=== PATIENT | female | born 1970 | race Caucasian/White ===

== ENCOUNTER 2020-02-28 13:04 | Outpatient (REF) | payer OTHER, SELFPAY ==
[2020-02-28 14:19] LABS: Basophils Percent Auto 0.2 % (0-2); Eosinophils Percent Auto 0.7 % (0-4); Hematocrit 41.2 % (37-47); Hemoglobin 13.5 g/dl (12.0-16.0); Imm Gran Abs Auto 0.01 X10*3/uL (0.00-0.03); Imm Gran Pct Auto 0.2 % (0.0-0.4); Lymphocytes Absolute Auto 0.4 X10*3/uL (1.2-4.9); Lymphocytes Percent Auto 7.7 % (20-40); MANUAL DIFF FLAG SCAN; Mean Corpuscular HGB Conc 32.8 g/dl (31.0-35.0); Mean Corpuscular Hemoglobin 30.8 pg (27.0-33.0); Mean Corpuscular Volume 93.8 fL (80-98); Mean Platelet Volume 11.5 fL (9.4-12.3); Monocytes Absolute Auto 0.6 X10*3/uL (0.1-1.2); Monocytes Percent Auto 10.5 % (2-11); Neutrophils Absolute Auto 4.4 X10*3/uL (2.0-8.3); Neutrophils Percent Auto 80.7 % (45-73); Platelet Count 220 X10*3/uL (160-400); Red Blood Count 4.39 X10*6/uL (4.20-5.50); Red Cell Distribution Width 12.4 % (11.0-16.0); SCAN SMEAR FLAG 1; White Blood Count 5.4 X10*3/uL (4.8-10.8)
[2020-02-28 14:42] LABS: Alanine Aminotransferase 9 U/L (0-31); Albumin Level 4.7 g/dL (3.5-5.0); Alkaline Phosphatase 52 U/L (39-117); Anion Gap 13 (12-20); Aspartate Amino Transferase 14 U/L (5-31); Bilirubin Direct 0.2 mg/dL (0.0-0.5); Bilirubin Total 0.8 mg/dL (0.0-1.0); Blood Urea Nitrogen 14 mg/dL (9-16); Calcium 8.9 mg/dL (8.4-10.2); Carbon Dioxide 27 mmol/L (22-29); Chloride 105 mmol/L (96-108); Estimated Glomerular Filt Rate > 60; Glucose Random 94 mg/dL (60-115); Potassium 4.1 mmol/l (3.3-5.1); Sodium 141 mmol/L (135-145)
[2020-02-28 14:50] LABS: SLIDE REVIEW VERIFIED
== END 2020-02-28 13:05 | disposition home or self-care (01) ==
LOC: HO.LAB 13:04
PROVIDERS: PCP Nurse Practitioner Adult Health; Visit Provider Psychiatry & Neurology Neurology
DX: G35 Multiple sclerosis (principal)
CPT/HCPCS: 36415; 80048; 80076; 85025

== ENCOUNTER 2020-04-09 11:56 | Outpatient (REF) | payer OTHER, SELFPAY ==
[2020-04-09 13:39] LABS: COVID-19 Test Negative (Negative)
== END 2020-04-09 11:57 | disposition home or self-care (01) ==
LOC: HO.EMPCOV 11:56
PROVIDERS: PCP Nurse Practitioner Adult Health; Visit Provider Internal Medicine
DX: Z20.828 Contact with and (suspected) exposure to other viral communicable diseases (principal)
CPT/HCPCS: 87635; C9803

== ENCOUNTER 2020-04-30 08:48 | Outpatient (REF) | payer OTHER, SELFPAY ==
[2020-04-30 09:04] LABS: COVID-19 Test Positive (Negative)
== END 2020-04-30 08:49 | disposition home or self-care (01) ==
LOC: HO.EMPCOV 08:48
PROVIDERS: Visit Provider Internal Medicine
DX: Z20.828 Contact with and (suspected) exposure to other viral communicable diseases (principal)
CPT/HCPCS: 87635; C9803

== ENCOUNTER 2020-07-16 14:14 | Outpatient (REF) | payer OTHER, SELFPAY ==
[2020-07-16 15:02] LABS: Basophils Percent Auto 0.2 % (0-2); Eosinophils Percent Auto 0.9 % (0-4); Hemoglobin 12.8 g/dl (12.0-16.0); Imm Gran Abs Auto 0.01 X10*3/uL (0.00-0.03); Imm Gran Pct Auto 0.2 % (0.0-0.4); Lymphocytes Absolute Auto 0.4 X10*3/uL (1.2-4.9); Lymphocytes Percent Auto 8.4 % (20-40); MANUAL DIFF FLAG SCAN; Mean Corpuscular HGB Conc 32.8 g/dl (31.0-35.0); Mean Corpuscular Hemoglobin 30.4 pg (27.0-33.0); Mean Corpuscular Volume 92.6 fL (80-98); Monocytes Absolute Auto 0.4 X10*3/uL (0.1-1.2); Monocytes Percent Auto 9.7 % (2-11); Neutrophils Absolute Auto 3.6 X10*3/uL (2.0-8.3); Neutrophils Percent Auto 80.6 % (45-73); Platelet Count 211 X10*3/uL (160-400); Red Blood Count 4.21 X10*6/uL (4.20-5.50); Red Cell Distribution Width 12.8 % (11.0-16.0); SCAN SMEAR FLAG 1; White Blood Count 4.5 X10*3/uL (4.8-10.8)
[2020-07-16 15:19] LABS: SLIDE REVIEW VERIFIED
[2020-07-16 15:28] LABS: Alanine Aminotransferase 14 U/L (0-31); Albumin Level 4.9 g/dL (3.5-5.0); Alkaline Phosphatase 48 U/L (39-117); Aspartate Amino Transferase 19 U/L (5-31); Bilirubin Direct 0.2 mg/dL (0.0-0.5); Bilirubin Total 0.7 mg/dL (0.0-1.0); Total Protein 7.2 g/dL (6.5-8.0)
== END 2020-07-16 14:15 | disposition home or self-care (01) ==
LOC: HO.LAB 14:14
PROVIDERS: PCP Family Medicine; Visit Provider Psychiatry & Neurology Neurology
DX: G35 Multiple sclerosis (principal)
CPT/HCPCS: 36415; 80076; 85025

== ENCOUNTER → 2020-12-25 13:03 | Outpatient (BNVA) | payer SELFPAY | PROVIDERS: PCP Family Medicine ==

== ENCOUNTER 2021-05-10 12:21 | Outpatient (REF) | payer OTHER, SELFPAY ==
--- NOTE | ~2021-05-10 | MM_ITS ---
EXAMINATION: MM SCREENING DIGITAL BREAST TOMOSYNTHESIS, BILATERAL CLINICAL INFORMATION: Screening. Asymptomatic. The lifetime risk of breast cancer based on the Tyrer-Cuzick Model is 15%. COMPARISON: Mammography: 02/09/2019, 05/03/2017, 03/28/2016 TECHNIQUE: Digital breast tomosynthesis is performed in both the craniocaudal and mediolateral oblique views along with computer-aided detection (CAD). Synthesized 2D images are generated from the tomosynthesis. FINDINGS: There are scattered areas of fibroglandular density (ACR BI-RADS breast composition Category b). There are scattered parenchymal asymmetries similar to prior studies. The left breast shows no interval mass or architectural abnormality. Neither breast shows abnormal calcifications. The bilateral axilla and skin contours are unremarkable. The right MLO view has questionable nodular asymmetry upper quadrant 8 cm from nipple without correlate on CC view. This may represent summation artifact or incompletely compressed glandular tissue. Patient will be recalled for additional imaging. MM/MM tomosynthesis screening BI IMPRESSION: 1. Right: Asymmetric density upper quadrant limited to MLO view, possibly summation artifact or incompletely compressed glandular tissue. 2. Left: No mammographic evidence of malignancy. ASSESSMENT: BI-RADS 0: Incomplete - Need Additional Imaging Evaluation RECOMMENDATION: 1. Additional views of the right breast (spot MLO, spot ML). 2. Targeted ultrasound if warranted after review of the additional views. 3. Radiology department staff will contact the patient for additional imaging. This patient's information was entered into a reminder system with a target due date for their next mammogram.
== END 2021-05-10 12:22 | disposition home or self-care (01) ==
LOC: HO.MAMMO 12:21
PROVIDERS: PCP Nurse Practitioner Adult Health; Visit Provider Pediatrics
DX: Z12.31 Encounter for screening mammogram for malignant neoplasm of breast (principal)
CPT/HCPCS: 77063; 77067

== ENCOUNTER 2021-05-28 09:24 | Outpatient (REF) | payer OTHER, SELFPAY ==
--- NOTE | ~2021-05-28 | MM_ITS ---
EXAMINATION: MM DIAGNOSTIC DIGITAL BREAST TOMOSYNTHESIS, RIGHT CLINICAL INFORMATION: Right breast asymmetry upper quadrant. COMPARISON: Mammography: 05/10/2021 and studies dating back to 01/01/2014. TECHNIQUE: Digital breast tomosynthesis is performed. 2D images are generated from the tomosynthesis. The following views are obtained: Spot compression mediolateral oblique, 90 degree mediolateral, and targeted right breast ultrasound. FINDINGS: There are scattered areas of fibroglandular density (ACR BI-RADS breast composition Category b). Additional views demonstrate region of dense breast parenchyma about the superior aspect but without new abnormal dominant mass appreciated. Ultrasound evaluation of the superior aspect of the right breast did not demonstrate any abnormal cystic or solid mass. No region of abnormal distal sound shadowing is appreciated. Results are discussed with the patient at time of visit. MM/MM tomosynthesis added views R IMPRESSION: No specific mammographic or ultrasound findings to suggest malignancy of the right breast. ASSESSMENT: BI-RADS 1: Negative RECOMMENDATION: Routine annual mammography screening. This patient's information was entered into a reminder system with a target due date for their next mammogram.
--- NOTE | ~2021-05-28 | US_ITS ---
EXAMINATION: US DIAGNOSTIC ULTRASOUND BREAST, RIGHT CLINICAL INFORMATION: Superior right breast asymmetry. COMPARISON: May 28, 2021 and studies dating back to January 01, 2014. TECHNIQUE: Ultrasound of the breast is performed with real-time akers scale imaging and color Doppler. FINDINGS: There is no focal suspicious finding. There is no solid mass, architectural abnormality, duct ectasia, or edema in the soft tissue planes. Results are discussed with the patient at time of visit. US/US breast RT limited IMPRESSION: No specific ultrasound findings of the right breast to suggest malignancy. ASSESSMENT: BI-RADS 1: Negative RECOMMENDATION: Routine annual mammography screening. This patient's information was entered into a reminder system with a target due date for their next mammogram.
== END 2021-05-28 09:25 | disposition home or self-care (01) ==
LOC: HO.MAMMO 09:24
PROVIDERS: PCP Nurse Practitioner Adult Health; Visit Provider Pediatrics
DX: R92.8 Other abnormal and inconclusive findings on diagnostic imaging of breast (principal)
CPT/HCPCS: 76642; 77061; 77065

== ENCOUNTER 2021-07-14 15:46 | Outpatient (REF) | payer OTHER, SELFPAY ==
[2021-07-14 15:59] LABS: MANUAL DIFF FLAG NO
[2021-07-14 16:21] LABS: Basophils Percent Auto 0.3 % (0-2); Eosinophils Absolute Auto 0.1 X10*3/uL (0.0-0.4); Eosinophils Percent Auto 1.5 % (0-4); Hemoglobin 13.3 g/dl (12.0-16.0); Imm Gran Abs Auto 0.01 X10*3/uL (0.00-0.03); Imm Gran Pct Auto 0.3 % (0.0-0.4); Lymphocytes Absolute Auto 0.4 X10*3/uL (1.2-4.9); Lymphocytes Percent Auto 13.4 % (20-40); Mean Corpuscular HGB Conc 32.4 g/dl (31.0-35.0); Mean Corpuscular Hemoglobin 29.8 pg (27.0-33.0); Mean Corpuscular Volume 91.9 fL (80.0-98.0); Mean Platelet Volume 11.2 fL (9.4-12.3); Monocytes Absolute Auto 0.4 X10*3/uL (0.1-1.2); Monocytes Percent Auto 12.2 % (2-11); Neutrophils Absolute Auto 2.4 x10*3/uL (2.0-8.3); Neutrophils Percent Auto 72.3 % (45-73); Platelet Count 189 X10*3/uL (160-400); Red Blood Count 4.46 X10*6/uL (4.20-5.50); White Blood Count 3.3 X10*3/uL (4.8-10.8)
[2021-07-14 16:45] LABS: Alanine Aminotransferase 13 U/L (0-31); Albumin Level 4.8 g/dL (3.5-5.0); Alkaline Phosphatase 50 U/L (39-117); Anion Gap 12 (12-20); Aspartate Amino Transferase 15 U/L (5-31); Bilirubin Direct 0.2 mg/dL (0.0-0.5); Bilirubin Total 0.4 mg/dL (0.0-1.0); Blood Urea Nitrogen 10 mg/dL (9-16); Calcium 10.1 mg/dL (8.4-10.2); Carbon Dioxide 26 mmol/L (22-29); Chloride 105 mmol/L (96-108); Estimated Glomerular Filt Rate > 60; Glucose Random 124 mg/dL (60-115); Potassium 4.2 mmol/L (3.3-5.1); Sodium 139 mmol/L (135-145); Total Protein 7.3 g/dL (6.5-8.0)
== END 2021-07-14 15:47 | disposition home or self-care (01) ==
LOC: HO.LAB 15:46
PROVIDERS: PCP Nurse Practitioner Adult Health; Visit Provider Psychiatry & Neurology Neurology
DX: G35 Multiple sclerosis (principal)
CPT/HCPCS: 36415; 80048; 80076; 85025

== ENCOUNTER 2021-08-10 12:56 | Outpatient (REF) | payer OTHER, SELFPAY ==
--- NOTE | ~2021-08-10 | MR_ITS ---
MR BRAIN WITHOUT AND WITH CONTRAST CLINICAL INFORMATION: Multiple sclerosis. COMPARISON: Brain MRI 03/31/2017. TECHNIQUE: Multiplanar, multisequence MRI of the brain was obtained before and after the intravenous administration of 7 mL of Gadavist. FINDINGS: Stable pattern mild T2 signal changes within the periventricular white matter and corpus callosum. No new lesions and no enhancing lesions to suggest active demyelination. There is no hydrocephalus, extra-axial surface collection, or herniation. The major flow voids at the skull base are preserved. There is no acute infarct on diffusion-weighted imaging. There is no intracranial hemorrhage on the gradient recalled echo acquisition. The midline structures are normal. The cerebellar tonsils are normally positioned. The cerebellum and brainstem are normal. The craniocervical junction is normal. Osseous marrow signal intensity is homogenous. The visualized soft tissues are unremarkable. MR/MR head/brain wo/w con IMPRESSION: Stable pattern mild T2 signal changes within the periventricular white matter and corpus callosum. No new lesions and no enhancing lesions to suggest active demyelination.
== END 2021-08-10 12:57 | disposition home or self-care (01) ==
LOC: HO.MRI 12:56
PROVIDERS: PCP Nurse Practitioner Adult Health; Visit Provider Psychiatry & Neurology Neurology
DX: G35 Multiple sclerosis (principal)
CPT/HCPCS: 70553; A9585

== ENCOUNTER 2021-08-24 12:49 | Outpatient (REF) | payer OTHER, SELFPAY ==
--- NOTE | ~2021-08-24 | MR_ITS ---
EXAMINATION: MR CERVICAL SPINE WITHOUT AND WITH CONTRAST CLINICAL INFORMATION: 51-year-old with MS. COMPARISON: 04/03/2017 MRI. TECHNIQUE: MRI of the cervical spine was obtained using routine sequences with and without contrast. Intravenous contrast: Gadavist 7 mL. FINDINGS: ALIGNMENT: Redemonstrated is slight retrolisthesis at C5-C6 stable in appearance with mild lordotic reversal centered at C4-C5 slightly more prominent on current study, now with 2 mm of anterolisthesis at C3-C4 since the prior exam. CRANIOCERVICAL JUNCTION/C1-C2 ARTICULATIONS: Intact and aligned. VISUALIZED INTRACRANIAL STRUCTURES: Within normal limits. VERTEBRAL BODIES: Vertebral body heights are well maintained. DISC SPACES AND ENDPLATES: Qbgecppk-ed-zdyfic disc space height loss, with intradiscal degenerative signal changes, Schmorl's nodes and spondylosis at C5-C6 largely unchanged in appearance. Mild disc space height loss and mild spondylosis at C3-C4 and C4-C5 similar to previous exam. BONE MARROW: Type II degenerative marrow signal changes noted along the endplates at C5-C6 similar to previous study, with resolution of type I marrow signal changes along the endplates at this level since the previous exam. C2-C3: No disc herniation, DJD, canal or neural foraminal stenosis. C3-C4: Unroofing of the posterior disc margin on current study related to development of mild spondylolisthesis, now with a central to left paramedian disc osteophyte complex with slight flattening of the ventral dural sac without cord impingement or canal stenosis. Moderate left-sided facet arthrosis at this level is similar to previous exam. No significant neural foraminal stenosis. C4-C5: No disc herniation. Minor left-sided facet arthrosis. No canal or neural foraminal stenosis. C5-C6: Mild broad-based posterior disc osteophyte complex stable in appearance with slight flattening of the ventral dural sac without cord impingement or canal stenosis. Bilateral uncovertebral spurring is noted with no significant neural foraminal stenosis stable in appearance. C6-C7: No disc herniation. Minor facet arthrosis left more than right without significant canal or neural foraminal stenosis. Mild ligamentum flavum thickening stable in appearance. C7-T1: No disc herniation. Olhdzkrl-hv-gawnnz bilateral facet arthrosis noted stable in appearance with a small left-sided facet joint effusion unchanged, ligamentum flavum thickening and no significant spinal canal stenosis. There is minor foraminal narrowing bilaterally without neural impingement unchanged. SPINAL CORD: Redemonstrated is a small T2 hyperintense lesion in the dorsal aspect of the spinal cord at the C1-C2 level with no abnormal enhancement, largely unchanged in appearance. There is a tiny T2 hyperintensity on the left side of the spinal cord at the level of the superior endplate of C3 which is a new finding with no abnormal enhancement. Previously noted faint T2 hyperintensity on the right side of the spinal cord at the C5 level is difficult to appreciate on current study. No abnormal spinal cord enhancement and no abnormal leptomeningeal enhancement to suggest active inflammatory changes. EXTRACRANIAL SOFT TISSUES: There is a 2.2 x 1.4 cm ovoid intermediate T1/heterogeneously hyperintense T2-weighted mass in the subcutaneous fat to the left of midline at the C6-C7 level which has increased in size from the previous exam and may reflect a large epidermal inclusion cyst. Correlate with direct visualization and palpation and followup clinically. MR/MR cervical spine wo/w con IMPRESSION: 1. Stable small nonenhancing dorsal spinal cord lesion at the C1-C2 level. Previously suspected tiny lesion on the right side of the spinal cord at the C5 level is not appreciated on current study. A new tiny nonenhancing T2 hyperintense focus on the left side of the spinal cord is noted at the level of the superior endplate of C3. No abnormal enhancement to suggest active inflammatory disease. 2. Mild lordotic reversal at C4-C5 with mild anterolisthesis at C3-C4 and slight retrolisthesis at C5-C6 as described above, with discogenic degenerative changes at C5-C6, disc osteophyte complex at C5-C6 and C3-C4 as detailed above without spinal cord impingement or canal stenosis. 3. Enlarging 2.2 cm subcutaneous cystic mass along the posterior aspect of the lower cervical region on the left at the C6-C7 level possibly a large epidermal inclusion cyst. Correlate with direct examination and clinical followup.
== END 2021-08-24 12:50 | disposition home or self-care (01) ==
LOC: HO.MRI 12:49
PROVIDERS: Visit Provider Psychiatry & Neurology Neurology
DX: G35 Multiple sclerosis (principal)
CPT/HCPCS: 72156; A9585

== ENCOUNTER 2021-09-30 18:42 | Outpatient (REF) | payer OTHER, SELFPAY ==
[2021-09-30 19:18] LABS: COVID-19 Test Negative (Negative); IDNOW Serial# 16C4AD1C
== END 2021-09-30 18:43 | disposition home or self-care (01) ==
LOC: HO.LAB 18:42
PROVIDERS: Visit Provider Internal Medicine
DX: Z20.822 Contact with and (suspected) exposure to COVID-19 (principal)
CPT/HCPCS: 87635

== ENCOUNTER 2021-10-21 12:04 | Outpatient (REF) | payer OTHER, SELFPAY ==
--- NOTE | ~2021-10-21 | XR_ITS ---
EXAMINATION: XR KNEE, LEFT CLINICAL INFORMATION: Left knee pain and swelling status post ACL repair. COMPARISON: Bilateral knee radiographs dated 10/24/2017. TECHNIQUE: Four views of the left knee. FINDINGS: Distal femoral proximal tibial interference screws are noted in place mild increased lucency is seen adjacent to the femoral screw with no significant change in alignment. Mild tricompartmental degenerative joint changes are seen. Mild femoral-tibial chondrocalcinosis is seen. There is no acute fracture or dislocation. There is a small suprapatellar joint effusion. The soft tissues are unremarkable. XR/XR knee LT 4V IMPRESSION: 1. Small suprapatellar joint effusion without acute underlying osseous abnormality. This was not seen previously. 2. Question mild loosening of the distal femoral interference screw without other significant change.
== END 2021-10-21 12:05 | disposition home or self-care (01) ==
LOC: HO.HMGCX 12:04
PROVIDERS: PCP Nurse Practitioner Adult Health; Visit Provider Physician Assistant Surgical
DX: M25.562 Pain in left knee (principal); M25.462 Effusion, left knee; Z98.890 Other specified postprocedural states
CPT/HCPCS: 73564

== ENCOUNTER 2024-12-10 15:00 | Outpatient (AMB) | payer OTHER, SELFPAY ==
--- NOTE | 2024-12-10 15:02 | MHC.OFFVIS ---
Intake Visit Reasons: 6 months Allergies No Known Allergies Allergy (Verified 12/10/24 15:11) Medication List - Last Reconciled 12/10/24 by Kimmie Pino CNP hellsbdsnn-jurakflyckojp-rriq 50-325-40 mg 1 tab PO Q8H PRN ofatumumab (Kesimpta Pen) mg subcut HPI Comments Details: Brain MRI from 07/2024 showing subtle new 4mm lesion within left cerebellar white matter and subtle new FLAIR bright lesion within left side of the cord at C3.?Tecfidera stopped and started Kesimpta on 09/10/2024 which she was tolerating well, no medication side effects. Continues with some left arm and left leg weakness. Off balance at times, no falls. Some numbness to left hand which is unchanged. No numbness or tingling in feet. Few headaches a month, butalbital as needed helps. Sleep was okay. Strress was okay. Left arm heaviness continues.?Balance was off at times, no falls. No numbness to feet.?Headaches have been okay lately. Headaches could be all over, pain was moderate to severe, and could last for hours at a time. No specific triggers identified. She tried butalbital with good relief in the past. Sleep was not so good. Stress level was okay.? She was working days at [employer] in [employer] for the last two years. Strength and coordination okay. No change in left hand numbness. No weakness. No side effects from Tecfidera other than occasional flushing. Not able to exercise as much due to work schedule and dog is getting older. Was waking 4-5 miles 4x/week and [employer] 4x/week. No bladder control problems. No back problems. She has never had any previous neurological symptoms. She does not identify any triggers and there was no injury or fall. [facility] Medical History (Updated 12/10/24 @ 15:08 by Kimmie Pino CNP) Migraine Multiple sclerosis Lyme disease Numbness Peripheral neuropathy Review of Systems Const Denies chills, Denies daytime sleepiness, Denies difficulty sleeping, Denies fatigue, Denies fever(s), Denies frequent falls, Reports headache(s), Denies increased appetite, Denies poor appetite, Denies snoring, Denies weakness, Denies weight gain and Denies weight loss Eyes Denies loss of vision ENT Denies vertigo, Denies dizziness, Reports headache(s) and Denies neck pain Card Denies chest pain at rest, Denies chest pain with activity, Denies syncope, Denies leg edema, Denies palpitations, Denies dyspnea and Denies dyspnea on exertion Resp Denies cough, Denies dyspnea, Denies dyspnea on exertion and Denies snoring GI Denies abdominal pain, Denies constipation, Denies heartburn, Denies diarrhea and Denies nausea Denies urinary frequency, Denies urinary incontinence and Denies urinary urgency Musc Denies abnormal gait, Denies back pain, Denies myalgias, Denies arthralgias, Denies neck pain, Reports numbness and Reports tingling Neuro Denies abnormal gait, Denies vertigo, Denies dizziness, Denies syncope, Denies frequent falls, Reports headache(s), Denies lack of coordination, Denies loss of vision, Denies memory loss, Reports numbness, Denies Other visual disturbances, Denies restless legs, Denies seizure-like activity, Reports tingling, Denies paresthesias, Denies tremor(s), Denies weakness and Reports other (balance difficulty) Psych Denies anxiety, Denies depression, Denies auditory hallucinations, Denies memory loss and Denies visual hallucinations Endo Denies fatigue and Denies palpitations Physical Exam Const Other: General Appearance:? normal, in no acute distress. Heart:? S1, S2 normal, no murmurs. Lungs:? clear anteriorly and posteriorly. Musculoskeletal:? normal. Extremities:? no edema. Psych:? alert, oriented, cognitive function intact, cooperative with exam. Neuro Other: Abnormal Neurological Findings:?slight numbness left hand first 3 fingers Mental Status: alert and oriented X 3. Normal attention, orientation, memory, and affect. Cranial Nerves: Pupils are equal, round, and reactive to light. External ocular muscles are intact. Visual moreno are full, no ptosis. Face is symmetrical, no facial weakness or droop. Facial sensations are normal. Tongue protrudes in midline. Palate elevates symmetrically. Shoulder shrugging is normal Motor Examination: Normal muscle tone, bulk and strength. No atrophy or fasciculations. No drift of the extended upper extremities. DTR 2+. Plantars are flexor. Sensory Exam: As above, otherwise normal light touch, temperature, pinprick, vibration, and joint-position sensations. Rhomberg sign is absent. Coordination: No ataxia. No titubation. Gait Exam: Within normal limits. Cerebellar Signs: Exvkyd-ob-iomm is okay. Extrapyramidal System: No tremor, rigidity with normal facial expressions. No bradykinesia. No bradyphrenia. Normal arm swing and posture. No propulsion or retropulsion. Speech: Normal. No dysphasia or dysarthria. Results Reviewed Results Reviewed: 09/24/14 MRIs reviewed. Enhancing C2 cord lesion and 5-7 periventricular and 1 callosal lesion c/w MS. Lyme positive with 2 reactive WB: 41kda IgG and 23 kda IgM. Had ID consult and was not treated. 04/16/15 MRI brain stable. Cervical cord lesions noted . No enhancing lesions. 03/2017 MRI brain and C spine stable with no new lesions. 7 wm lesions in brain are stable. 07/2021 MRI brain and C spine stable. 08/03/2024 MRI brain and C spine W+WO at [facility]: Supratentorial white matter lesions compatible with MS plaques are unchanged. Subtle new 4mm lesion within left cerebellar white matter. A lesion within the posterior cervical cord at C2 is unchanged, and there is a subtle new FLAIR bright lesion within left side of the cord at C3. None of the intracranial lesions enhance. 08/2024 labs including CBC, liver profile, hep B profile, and immunoglobulins: Ok Assessment & Plan Assessment & Plan (1) Multiple sclerosis: Code(s): G35 - Multiple sclerosis Category: Medical Plan: Lab results reviewed. She was tolerating Kesimpta well and medication was continued. Continue Kesimpta 20mg/0.4mL subcutaneous monthly (2) Migraine: Code(s): G43.909 - Migraine, unspecified, not intractable, without status migrainosus Category: Medical Qualifiers: Migraine type: unspecified Status migrainosus presence: without status migrainosus Intractability: not intractable Qualified Code(s): G43.909 - Migraine, unspecified, not intractable, without status migrainosus Plan: Continue gexiaveigb-IRJY-ijlx 50-325-40mg 1 tablet as needed q8h for headache #10 for 30 days (3) Disturbance of skin sensation: Code(s): R20.9 - Unspecified disturbances of skin sensation Category: Medical Plan Meds tried: Tecfidera (2015 - 08/2024, discontinued after brain MRI from 07/2024 showing subtle new 4mm lesion within left cerebellar white matter and subtle new FLAIR bright lesion within left side of the cord at C3) Medications: New enekywkxbv-vgrhwbowtqjbq-jzlm 50-325-40 mg 1 tab PO Q8H PRN 10 tabs 5RF headache 30 days Coding Level of Care Code Est Pt Level 4 (46665) Diagnoses Multiple sclerosis G35 Migraine without status migrainosus, not intractable, unspecified migraine type G43.909 Migraine type: unspecified Status migrainosus presence: without status migrainosus Intractability: not intractable Disturbance of skin sensation R20.9
--- OUTSIDE RECORDS SUMMARY | 2024-12-10 15:51 | XMS_ITS | Patient Health Record ---
Author Organization [facility] Address [address] [address] Care Team Providers Care Automotive Porter Name Role Phone Shola Kapadia Primary Care Provider Hai Mendiola Unavailable [phone] Jia Monroe Unavailable [phone] Allergies Allergen (clinical drug ingredient) Drug/Non Drug Allergy documented on EMR Reaction Allergy Type Onset Date Status zolpidem Zolpidem Unknown Drug Allergy Active Reason For Referral No Information Problems Problem Type SNOMED Code ICD Code Onset Dates Problem Status W/U Status Risk Notes Problem Tobacco user (824290523) Nicotine dependence, unspecified, in remission (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) Active confirmed Problem Multiple sclerosis (86510432) Multiple sclerosis (G35) Active confirmed Problem Abnormal uterine bleeding (63485063021943 ) Abnormal uterine and vaginal bleeding, unspecified (N93.9) Active confirmed Problem Cellulitis and abscess of trunk (192538483) Abscess of upper back excluding scapular region (L02.212) Active confirmed Vital Signs Heart Rate 70 /min 04/25/2024 Temperature 97.7 degrees Fahrenheit 04/25/2024 Respiratory Rate 16 /min 04/25/2024 Height-cm 165.1 cm 04/25/2024 Oximetry 98 % 04/25/2024 Blood pressure diastolic 54 mm Hg 04/25/2024 Weight-kg 68.04 kg 04/25/2024 Height 65 in 04/25/2024 Blood pressure systolic 98 mm Hg 04/25/2024 Weight 150 lbs 04/25/2024 BMI 24.96 kg/m2 04/25/2024 Encounters Encounter Location Date Provider Diagnosis [place] [address] [address] 03/21/2024 Hai Goldman Abscess of upper reyes k excluding scapular region L02.212 ; Lyme disease, unspecified A69.20 and Nicotine dependence, unspecified, in remission F17.[address] [address] 03/26/2024 Jooyun Monroe Abscess of upper reyes k excluding scapular region L02.212 ; Lyme disease, unspecified A69.20 and Nicotine dependence, unspecified, in remission F17.[address] [address] 04/04/2024 Hai Goldman Abscess of upper reyes k excluding scapular region L02.212 ; Lyme disease, unspecified A69.20 and Nicotine dependence, unspecified, in remission F17.[address] [address] 04/16/2024 Jooyun Monroe Abscess of upper reyes k excluding scapular region L02.212 ; Lyme disease, unspecified A69.20 and Nicotine dependence, unspecified, in remission F17.[address] [address] 04/25/2024 Jooyun Monroe Abscess of upper reyes k excluding scapular region L02.212 ; Lyme disease, unspecified A69.20 and Nicotine dependence, unspecified, in remission F17.[address] [address] 03/18/2024 Hai Goldman [facility] [address] [address] 03/22/2024 Hai Goldman Assessments Encounter Date Diagnosis (ICD Code) Assessment Notes Treatment Notes Treatment Clinical Notes Section Notes 03/21/2024 Lyme disease, unspecified (ICD-10 - A69.20) 03/21/2024 Abscess of upper back excluding scapular region (ICD-10 - L02.212) 03/26/2024 Abscess of upper back excluding scapular region (ICD-10 - L02.212) On assessment today, Rocio is noted to be afebrile and other VS were within normal limits. The patient denies pain or discomfort related to wounds. We removed dressings, and examined the wound site. The wound noted improvement, measuring smaller with granulated tissue and moderate amount of serosanguineous drainage. There was no suggestive s/s of an underlying infectious process. There was no foul odor noted. The melissa wound is noted with deep puplish discoloration. After examination, I discussed the indication of debridement and she was agreeable. I then performed debridement to remove devitalized tissues as outlined. She tolerated procedures well. The wound sites were then cleansed with saline and thereafter, we applied aquacell rope, onto the wound sites and zinc to melissa wound areas. The sites were then covered with a dry dressing.Patient was educated on protecting wound site and change the dressing regularly. Rocio and or her will be performing dressing changes regularly as above, every other day.S/S of infection reviewed and when to go to EDPatient will have FU in one week patient verbalized understand and denies questions or concerns at this timeWill have follow up in one week, advised patient to call clinic with questions or concerns. I, DANIEL Zayas, examined, evaluated , and treated the patient. Dr. Shaista Aceves was available for any questions or concerns that I may have had. 04/04/2024 Abscess of upper back excluding scapular region (ICD-10 - L02.212) Rocio presents for her weekly wound care follow up for wound to left scapula. She reports dressing changes as recommended and reports she is very please with progression. No other acute concerns at today's visit. On assessment today, Rocio is noted to be afebrile and other VS were within normal limits. The patient denies pain or discomfort related to wounds. We removed dressings, and I examined the wound site. The wound to left scapula, abscess is noted with improvement since last visit based on measuring smaller with granulated tissue. She continues with moderate amount of serosanguineous drainage. There was no suggestive s/s of an underlying infectious process. There was no foul odor noted. The melissa wound is Rolled and hyper granulation to wound bed. After examination, I discussed the indication of debridement and she was agreeable. I then performed debridement to remove devitalized tissues as outlined. She tolerated procedures well. I utilized silver nitrate to hypergranulated tissue The wound sites were then cleansed with saline and thereafter, we applied Aquacel, onto the wound sites and zinc to melissa wound areas. The sites were then covered with a dry dressing. Patient was educated on protecting wound site and change the dressing regularly. Rocio and or her will be performing dressing changes regularly as above, every other day. S/S of infection reviewed and when to go to EDPatient will have FU in two weeks IHai, MSN, ANIMAL TRAINER SUPERVISOR, IMAGE PROCESSING ENGINEER-C, examined, evaluated, and treated the patient. Dr. Shaista Aceves was available for any questions or concerns that I may have had. 04/16/2024 Abscess of upper back excluding scapular region (ICD-10 - L02.212) Rocio presents for her weekly wound care follow up for wound to left scapula. She reports dressing changes as recommended and noted small amount of drainage. On assessment today, Rocio is noted to be afebrile and other VS were within normal limits. The patient denies pain or discomfort related to wounds. We removed dressings, and I examined the wound site. The wound to left scapula, abscess is noted with improvement since last visit based on measuring smaller, no undermining and unable to see the wound bed. She continues with small amount of purulent drainage. There was no foul odor noted. No debridment needed today. The wound sites were then cleansed with saline and thereafter, wound culture obtained. Aquacel applied onto the wound sites and zinc to melissa wound areas. The sites were then covered with a dry dressing. Patient was educated on protecting wound site and change the dressing regularly. Rocio and or her will be performing dressing changes regularly as above, every other day. S/S of infection reviewed and when to go to EDPatient will have FU in one week. A total of 20 minutes was spent on this visit (face to face and non face to face) documenting HPI and performing physical exam, reviewing previous notes and testing, reviewing and adjusting treatment plan, counseling the patient on treatment choices, disease process, expected outcomes, and documenting the findings in the note. Jia Claire, IMAGE PROCESSING ENGINEER-BC, examined, evaluated, and treated the patient. Dr. Shaista Aceves was available for any questions or concerns that I may have had. 04/25/2024 Abscess of upper back excluding scapular region (ICD-10 - L02.212) Rocio presents for her weekly wound care follow up for wound to left scapula. She reports dressing changes as recommended and no more drainage noted for the last two days. On assessment today, Rocio is noted to be afebrile and other VS were within normal limits. The patient denies pain or discomfort related to wounds. We removed dressings, and I examined the wound site. The wound to left scapula has resolved and re-epitheliazed. There was no purulent drainage noted. The surround the wound area still has erythema, but no increased warmth or s/s of infection noted. No palpable mass surround the wound area. There was no foul odor noted. Advised patient to monitor any palpable masses, recurrent abcess surround the wound area, increased warmth, or drainage. A total of 20 minutes was spent on this visit (face to face and non face to face) documenting HPI and performing physical exam, reviewing previous notes and testing, reviewing and adjusting treatment plan, counseling the patient on treatment choices, disease process, expected outcomes, and documenting the findings in the note. I, Jia Monroe IMAGE PROCESSING ENGINEER-, examined, evaluated, and treated the patient. Dr. Shaista Aceves was available for any questions or concerns that I may have had. 04/25/2024 Lyme disease, unspecified (ICD-10 - A69.20) 04/16/2024 Lyme disease, unspecified (ICD-10 - A69.20) 04/04/2024 Lyme disease, unspecified (ICD-10 - A69.20) 03/26/2024 Lyme disease, unspecified (ICD-10 - A69.20) 03/21/2024 Nicotine dependence, unspecified, in remission (ICD-10 - F17.201) 03/26/2024 Nicotine dependence, unspecified, in remission (ICD-10 - F17.201) 04/04/2024 Nicotine dependence, unspecified, in remission (ICD-10 - F17.201) 04/16/2024 Nicotine dependence, unspecified, in remission (ICD-10 - F17.201) 04/25/2024 Nicotine dependence, unspecified, in remission (ICD-10 - F17.201) 03/21/2024 Tomas Chan is a 53 year old female that presents today for initial evaluation and treatment of wound of left shoulder Past medical hisstory is significant for eczema, chickpox, lyme disease, migraine, multiple sclerosis, former smoker The patient reports that the wound was first noted cyst approximetly 2.5 weeks ago then started using neosporin. However with no improvement whento PCP on 03/05/24 and then again on 03/08/24 as the cyst ruptured and was treated wtih clyndamycin and bactrim and use of iodaform for packing., However no culture resuts are noted in PCP referral. On assessment today, Rocio is noted to be afebrile and other VS were within normal limits. The patient denies pain or discomfort related to wounds. We removed dressings, with no suggestive s/s of an underlying infectious process. There was no foul odor noted. Her wound is noted to upper left there is granulated tissue, however wound continues with mod about of serou sang drainage. The melissa wound is noted with deep puplish discoloration. Wound bed is not able to be visualited do to size and depth of wound. Of note no bone is palpable. After examination, I discussed the indication of debridement and they were agreeable. I then performed debridement to remove devitalized tissues as outlined. She tolerated procedures well.silvernitrate was used to the edges of the wound to decreased bleed after debridement. she tolerated procedure well The wound sites were then cleansed with wound cleanser and thereafter, we applied aquacell rope, onto the wound sites and zinc to melissa wound areas. The sites were then covered with a dry dressing. Patient was educated on protecting wound site Rocio and or her will be performing dressing changes regularly as above, every other dayABI not indeicated at this timeS/S of infection reviewed and when to go to EDPatient will have FU in one week Reviewed past medical records, labs, hospitalizations, performed a complete wound assessment to assist in the identification of underlying cause of the wound to individualize treatment plan going forward. Will obtain consultations as indicated from different disciplines if not already involved with current care, including but not limited to: vascular intervention, endocrine, diabetic and nutrition education, infectious disease, dermatology, surgery. Will continue to review and assess interventions including but not limited to orthotics, and compression therapy, MINDY, labs, and cultures. Documentation will be provided to primary physicians or referring physicians to keep them informed of patients' progress. Due to the many factors that impact the healing of wounds, including but not limited to endocrine disorder, autoimmune disorders, Diabetes, weight gain, cardiovascular disease, poor circulation, and medications, and more not listed, and the role they play on the delay in wound healing, all referrals will be made promptly as well as discussed with patient prior too. We reviewed the importance of multidisciplinary team to maximize wound outcomes.patient verbalized understand and denies questions or concerns at this time A total of 35 minutes was spent on this visit (face to face and non face to face) documenting HPI and performing physical exam, reviewing previous notes and testing, reviewing and adjusting treatment plan, counseling the patient on treatment choices, disease process, expected outcomes, and documenting the findings in the note. some mild signs are expected while the wound heals: Mild redness or swelling around the woundMild warmth over the wound, which reduces over timeThe wound produces fluidMild pain or discomfort which is improving over timeSome tingling or electric shock' sensations that reduce as the wound healsSymptoms of mild infection: Spreading rednessIncreased heatIncreased swellingIncreased or new painIncreased fluid leaking from woundSERIOUS SIGNS OF INFECTIONChange in mental state, like confusion or disorientation Diarrhea , feeling sick or being sickSlurred speech Severe muscle pain Severe breathlessness Urinating less than normal. For example, not urinating for a day Loss of consciousnessHigh temperature (fever) or low body temperatureCold, clammy and pale or mottled skinFast heartbeatFast breathingChills and shiveringFeeling dizzy or faintWill have follow up in oone week, call clinic with questions or concerns IHai, MSN, ANIMAL TRAINER SUPERVISOR, IMAGE PROCESSING ENGINEER-C, examined, evaluated , and treated the patient. Dr. Shaista Aceves was available for any questions or concerns that I may have had. 03/26/2024 Other 04/25/2024 Other IDerek MD confirm that Jia SOTELO-BC understands and adheres to the guidelines of the established clinical protocols in the office. I confirm the above care provided was rendered under my general supervision as initially planned and subsequently discussed and supervised by me. Plan Of Treatment No Information Insurance Providers Payer Name Payer Address Payer Phone Subscriber Number Group Number Insured Name Patient Relationship to Insured Coverage Start Date Coverage End Date [facility] [address] [place], [place] [id number] Rocio Champagne Self - patient is the insured 3 Medical (General) History Medical History History ICD Code Abnormal uterine and vaginal bleeding, u nspecified N93.9 Multiple sclerosis G35 Eczema L30.9 Lyme disease A69.20 Migraine with aura G43.109 Surgical History Surgery Date(Month/Year) Arthroscopic ACL repair Left Tubal ligation
--- OUTSIDE RECORDS SUMMARY | 2024-12-10 15:51 | XMS_ITS | Encounter Summary ---
Author Organization [facility] Address [address] [facility] [address] [place] [address] Phone Care Team Providers Care Sql Developer Name Role Phone Malinda Mccauley CNP Unavailable [phone] Gerard Maurice MD Unavailable + Shola Kapadia MD Primary Care Provider [phone] Encounter Details Date Type Department Care Team (Late st Contact Info) Description 12/02/2024 Orders Only [facility] [address] [place] [address] Provider, MD Elena [address] [place] [id number] Social History Tobacco Use Types Packs/Day Years Used Date Smoking Tobacco: Former Cigarettes 0.3 1 1988 Smokeless Tobacco: Never Comments:Smoked socially in high school Alcohol Use Standard Drinks/Week Comments Yes 0 (1 standard drink = 0.6 oz pur e alcohol) 3 per month occasional Child or Family Care Answer Date Record ed Do you have problems with on e of the following making it difficult for you to work, study, or receive health care? No 06/27/2024 Education Answer Date Recorded Are you interested in help w ith more adult education (for example, completing high school, GED, job training, learning the Serbian language, technical skills, or developing parenting skills)? No 06/27/2024 Are you concerned about learning? Not on file 06/27/2024 No 06/27/2024 Yes 06/27/2024 Food Answer Date Recorded Within the past 6 months we worried whether our food would run out before we got money to buy more. Never True 06/27/2024 Within the past 6 months the food we bought just didn't last and we didn't have enough money to get more. Never True Residential Stability Answer Date Recor ded What is your housing situation today? I have festus augustin 06/27/2024 How many times have you move d in the past 12 months? Zero (I did not move) 06/27/2024 Paying for Meds Answer Date Recorded Do you have trouble paying for medicines? No 06/27/2024 Paying Utility Bills Answer Date Record ed Do you have trouble paying your heating or elect ricity bill? No 06/27/2024 Transportation Answer Date Recorded Has the lack of transportati on kept you from medical appointments or from getting medications? No 06/27/2024 Digital Access Answer Date Recorded No 06/27/2024 Yes 06/27/2024 Do you have reliable internet access at home? Ye s 06/27/2024 Do you have a device (e.g., phone, tablet, computer) with a working camera? Yes 06/27/2024 Intimate Partner Violence Answer Date R ecorded Denied Basic Needs Not on file 06/27/2024 In the past 12 months have y ou been in a relationship with a person who hurts, threatens, or tries to control you? No 06/27/2024 Worried food would run out Not on file 06/27 In the past 12 months have y ou been in a relationship with a person who hurts, threatens, or tries to control you? 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 [employer] Not on file Not on file N ot on file documented as of this encounter Plan of Treatment Not on file documented as of this encounter Procedures Procedure Name Priority Date/Time Associated Diagnosis Comments MAMMOGRAPHY Routine 11/20/2024 10:13 AM EDT documented in this encounter Results * MAMMOGRAPHY FOR RESULT ENTRY ONLY (11/20/2024 10:13 AM EDT) us Historical Provider HEALTH MAINTENANCE Edited Result - Final documented in this encounter Visit Diagnoses Not on filedocumented in this encounter Additional Health Concerns Assessment Noted Time PHQ-2 Depression Total Score: 0 06/27/19 25 5:14 PM EST documented as of this encounter Care Teams Sql Developer Relationship Specialty Start Date End Date Shola Kapadia MD [address] [place] [address], [address] [place] [address] PCP - General Internal Medicine 05/15/19 Malinda Mccauley CNP [address] [place] [address], [address] [place] [address] [email or web address] Historical LMR Provider 02/18/17 Gerard Maurice MD [address] [place] [address], [address] [place] [address] Neurology 06/06/18 documented as of this encounter Additional Source Comments The information contained in this document represents components of the legal health record. It is not the complete legal health record.[facility]
== END 2024-12-10 15:19 | disposition home or self-care (01) ==
LOC: HO.HSM 15:01
PROVIDERS: PCP Family Medicine; Referring Provider Pediatrics; Visit Provider Registered Nurse
DX: G35 Multiple sclerosis (principal); G43.909 Migraine, unspecified, not intractable, without status migrainosus; R20.9 Unspecified disturbances of skin sensation
CPT/HCPCS: 99214